=== PATIENT | male | born 2000 | race Caucasian/White ===

== ENCOUNTER 2018-02-19 15:49 | Emergency (ER) | payer BC ==
--- NOTE | 2018-02-19 18:32 | ED ---
GI/ HPI - HPI Summary HPI Summary: Pt is a 17 y/o male who presents to the ED c/o bloody stool. For the past year, hes been having intermittent bloody stool. Usually its just some blood when he wipes, but a few days ago he was dripping blood. This morning, he began to have sharp left flank pain. He denies any abdominal pain or constipation. The flank pain may be due to heavy lifting at work. Pt states he has BMs every day. - History of Current Complaint Chief Complaint: EDFlankPain Time Seen by Provider: 02/19/18 18:07 Stated Complaint: BLEEDING Hx Obtained From: Patient Onset/Duration: Started Weeks Ago - 1 year, Still Present Timing: Intermittent Current Severity: Moderate Pain Intensity: 4 Location of Pain: Flank - Left Associated Signs and Symptoms: Positive: Blood w/Stool, Flank Pain. Negative: Abdominal Pain Aggravating Factor(s): Nothing Alleviating Factor(s): Nothing - Allergy/Home Medications Allergies/Adverse Reactions: Allergies Allergy/AdvReac Type Severity Reaction Status Date / Time No Known Allergies Allergy Verified 02/19/18 17:47 PMH/Surg Hx/FS Hx/Imm Hx Cardiovascular History: Denies: Hx Hypertension Musculoskeletal History: Reports: Other Musculoskeletal History - Sprained wrist Infectious Disease History: No Infectious Disease History: Denies: Traveled Outside the [place] in Last 30 Days - Family History Known Family History: Positive: Hypertension - Social History Alcohol Use: Weekly Hx Substance Use: Yes Substance Use Type: Reports: Marijuana Hx Tobacco Use: No Smoking Status (MU): Never Smoked Tobacco Review of Systems Positive: Other - bloody stool, NEGATIVE: constipation. Negative: Abdominal Pain Positive: flank pain All Other Systems Reviewed And Are Negative: Yes Physical Exam - Summary Physical Exam Summary: VITAL SIGNS: Reviewed. GENERAL: Patient is a well-developed and nourished MALE who is lying comfortable in the stretcher. Patient is not in any acute respiratory distress. HEAD AND FACE: No signs of trauma. No ecchymosis, hematomas or skull depressions. No sinus tenderness. EYES: PERRLA, EOMI x 2, No injected conjunctiva, no nystagmus. EARS: Hearing grossly intact. Ear canals and tympanic membranes are within normal limits. MOUTH: Oropharynx within normal limits. NECK: Supple, trachea is midline, no adenopathy, no JVD, no carotid bruit, no c- spine tenderness, neck with full ROM. CHEST: Symmetric, no tenderness at palpation LUNGS: Clear to auscultation bilaterally. No wheezing or crackles. CVS: Regular rate and rhythm, S1 and S2 present, no murmurs or gallops appreciated. ABDOMEN: Soft, non-tender. No signs of distention. No rebound no guarding, and no masses palpated. Bowel sounds are normal. EXTREMITIES: FROM in all major joints, no edema, no cyanosis or clubbing. NEURO: Alert and oriented x 3. No acute neurological deficits. Speech is normal and follows commands. SKIN: Dry and warm RECTAL: No hemorrhoids, normal sphincter tone, no melena or gross blood Triage Information Reviewed: Yes Vital Signs On Initial Exam: Initial Vitals Temp Pulse Resp BP Pulse Ox 97.6 F 64 16 141/86 98 02/19/18 16:00 02/19/18 16:00 02/19/18 16:00 02/19/18 16:00 02/19/18 16:00 Vital Signs Reviewed: Yes Diagnostics - Vital Signs Vital Signs Temp Pulse Resp BP Pulse Ox 02/19/18 18:23 79 149/76 99 02/19/18 18:00 85 98 02/19/18 17:52 100 143/92 99 02/19/18 17:51 87 99 02/19/18 16:00 97.6 F 64 16 141/86 98 - Laboratory Result Diagrams: 02/19/18 19:38 02/19/18 19:38 Lab Statement: Any lab studies that have been ordered have been reviewed, and results considered in the medical decision making process. - Radiology Ribs w/ CXR Radiology Interpretation Completed By: ED Physician Summary of Radiographic Findings: Negative for any pathology. Pending official radiology report. Re-Evaluation - Re-Evaluation First Eval Re-Evaluation Time: 20:30 Change: Unchanged Comment: Discussed results with the pt. GIGU Course/Dx - Course Assessment/Plan: Pt is a 17 y/o male who presents to the ED c/o bloody stool. For the past year, hes been having intermittent bloody stool. Usually its just some blood when he wipes, but a few days ago he was dripping blood. This morning, he began to have sharp left flank pain. He denies any abdominal pain or constipation. The flank pain may be due to heavy lifting at work. Pt states he has BMs every day. Chest x-ray shows no acute pathology. Blood work without any significant abnormality. Occult throat is also negative. At this point since the test results are negative, will discharge the patient home with follow-up with PCP. I discussed all the findings and test results with the patient. Patient was instructed to return to the emergency room immediately if any of the symptoms return or worsens. Plan of care was discussed with the patient and understands and agrees. All questions were answered at patient satisfaction. There were no further complaints or concerns. Lung exam before discharge: CTA B/L. Good air exchange. No wheezing or crackles heard. CVS: S1 and S2 present. No murmurs appreciated. Patient is alert and oriented x 3. Patient is hemodynamically stable. Patient will be discharged home with follow up PCP in the next 2-3 days - Diagnoses Provider Diagnoses: Rectal bleed, Costochondritis Discharge - Sign-Out/Discharge Documenting (check all that apply): Patient Departure - Discharge - Discharge Plan Condition: Stable Disposition: HOME Prescriptions: Naproxen [Naproxen 500 mg tab] 500 mg PO BID #20 tablet Patient Education Materials: Rectal Bleeding (ED), Musculoskeletal Pain (ED) Referrals: Mercedes Mckinley MD [Primary Care Provider] - 3 Days Additional Instructions: FOLLOW UP WITH YOUR PRIMARY CARE PROVIDER WITHIN ONE WEEK FOR HIGH BLOOD PRESSURE NOTED TODAY. RETURN TO THE ED FOR ANY WORSENING OR NEW SYMPTOMS. - Billing Disposition and Condition Condition: STABLE Disposition: Home - Attestation Statements Document Initiated by Lien: Yes Documenting Scribe: Génesis Saavedra Provider For Whom Lien is Documenting (Include Credential): Rigo Gomez MD Scribe Attestation: Génesis Nielson scribed for Rigo Gomez MD on 02/19/18 at 2101. Scribe Documentation Reviewed: Yes Provider Attestation: The documentation as recorded by the Génesis garcia accurately reflects the service I personally performed and the decisions made by , Rigo Gomez MD Status of Scribe Document: Viewed
[2018-02-19 19:51] LABS: ABS Basophils 0.1 10^3/ul (0-0.2); ABS Eosinophils 0.1 10^3/ul (0-0.6); ABS Lymphocytes 3.1 10^3/ul (1.0-4.8); ABS Monocytes 0.6 10^3/ul (0-0.8); ABS Neutrophils 5.6 10^3/ul (1.5-7.7); ABS Nucleated RBC 0 10^3/ul; Eosinophil % 1.3 %; Hematocrit 45 % (42-52); Hemoglobin 15.7 g/dl (14.0-18.0); Lymphocyte % 32.8 %; Mean Corpuscular HGB Conc 35 g/dl (31-36); Mean Corpuscular Hemoglobin 30 pg (27-31); Mean Corpuscular Volume 84 fL (80-94); Mean Platelet Volume 7.2 fL (7.4-10.4); Nucleated Red Blood Cells % 0.1; Platelet Count 249 10^3/ul (150-450); Red Blood Count 5.33 10^6/ul (4.00-5.40); Red Cell Distribution Width 13 % (10.5-15); White Blood Count 9.5 10^3/ul (3.5-10.8)
[2018-02-19 20:06] LABS: EGFR Non-African American 94.1 (>60)
[2018-02-19] MEDS ORDERED: Ketorolac INJ* 60 MG/2 ML VIAL IM ONE (20:13)
[2018-02-19 20:31] VITALS: BP 146/80
== END 2018-02-19 20:31 | disposition home or self-care (01) ==
LOC: ED 15:49
DX: K92.1 Melena (principal); M94.0 Chondrocostal junction syndrome [Tietze]
CPT/HCPCS: 36415; 80053; 82270; 83605; 85025; 86140; 96372; 99282; J1885